=== PATIENT | male | born 1990 | race Caucasian/White ===

== ENCOUNTER 2019-12-16 19:34 | Emergency (ER) | payer BC ==
[2019-12-16 19:42] VITALS: TEMP 98.2
[2019-12-16] MEDS ORDERED: methylPREDNISolone SOD SUCCI 125 MG/2 ML VIAL IV STA (19:55)
[2019-12-16] MEDS ORDERED: SODIUM CHLORIDE 0.9% 500 ML 500 ML IV STA (19:55)
[2019-12-16] MEDS ORDERED: diphenhydrAMINE 50 MG/ML 1 ML VIAL IVP STA (19:55)
--- NOTE | 2019-12-16 20:23 | ED ---
Allergic Reaction HPI - General Chief complaint: Allergic Reaction Stated complaint: Poss allergic reaction Time Seen by Provider: 12/16/19 19:46 Source: patient Mode of arrival: ambulatory Limitations: no limitations - History of Present Illness Initial Comments: Patient is a 29-year-old male presenting to the emergency Department with complaints of a possible ALLERGIC reaction. Patient states 3 weeks ago he had a poison becca on his bilateral lower arms as well as on his abdomen area. Patient states over that next week his symptoms did seem to clear up. Patient states about 3 days ago he noticed hives returning on his abdomen and also extending onto his extremities. He did go to urgent care and received a steroid injection as well as started on prednisone. Patient states his symptoms seemed to have cleared up but then today his hives has returned. He has been taking his prednisone as prescribed. He denies any shortness of breath, chest pain, throat swelling, nausea or vomiting. He states he has been taking Benadryl 50 mg every 4-6 hours as well. His last dose was about 4 hours prior to arrival. He states he did not change anything else at home including soaps, lotions, detergents. He does not have any known ALLERGIES. He has no further complaints. Upon arrival to the ER his vitals are stable. - Related Data Previous Rx's Medication Instructions Recorded predniSONE 20 mg PO BID 3 Days #12 tab 12/16/19 Allergies Allergy/AdvReac Type Severity Reaction Status Date / Time No Known Allergies Allergy Verified 12/16/19 19:42 Review of Systems ROS Statement: Those systems with pertinent positive or pertinent negative responses have been documented in the HPI. ROS Other: All systems not noted in ROS Statement are negative. Past Medical History Past Medical History: No Reported History History of Any Multi-Drug Resistant Organisms: None Reported Past Surgical History: No Surgical Hx Reported Past Psychological History: No Psychological Hx Reported Smoking Status: Former smoker Past Alcohol Use History: None Reported Past Drug Use History: None Reported General Exam - General Exam Comments Initial Comments: GENERAL: Patient is well-developed and well-nourished. Patient is nontoxic and in no acute distress. HEAD: Atraumatic, normocephalic. EYES: Pupils equal round and reactive to light, extraocular movements intact, sclera anicteric, conjunctiva are normal. Eyelids were unremarkable. ENT: TMs normal, nares patent, oropharynx clear without exudates. Moist mucous membranes. NECK: Normal range of motion, supple without lymphadenopathy or JVD. LUNGS: Unlabored respirations. Breath sounds clear to auscultation bilaterally and equal. No wheezes rales or rhonchi. HEART: Regular rate and rhythm without murmurs, rubs or gallops. ABDOMEN: Soft, nontender, normoactive bowel sounds. No guarding, no rebound. No masses appreciated. : Deferred MUSCULOSKELETAL: Normal extremities with adequate strength and normal range of motion, no pitting or edema. No clubbing or cyanosis. NEUROLOGICAL: Patient is alert and oriented x 3. Motor and sensory are also intact. Cranial nerves II through XII grossly intact. Symmetrical smile. Normal speech, normal gait. PSYCH: Normal mood, normal affect. SKIN: Warm, Dry, normal turgor. Patient has erythematous raised patches consistent with hives along his abdomen, trunk, upper and lower extremities. Limitations: no limitations Course Vital Signs 12/16/19 12/16/19 19:41 20:46 Temperature 98.2 F Pulse Rate 67 Respiratory 16 18 Rate Blood Pressure 110/69 O2 Sat by Pulse 98 Oximetry Medical Decision Making - Medical Decision Making Patient is a 29-year-old male here with a possible ALLERGIC reaction presenting with hives on his trunk and extremities. His vitals are stable, he is in no acute distress, and rest of exam is unremarkable. He is already on prednisone 2 days. I did give patient some fluids as well as IV steroids and Benadryl. He reports improvement in his symptoms and his rash has dissipated. I will continue patient on prednisone. He may continue with Benadryl as well every 4-6 hours if needed. He can follow up with his PCP. He is in agreement with this plan of care. Return parameters were discussed with the patient he verbalizes understanding. Case discussed with Dr. Caro. Disposition Clinical Impression: Allergic reaction Disposition: HOME SELF-CARE Condition: Stable Instructions (If sedation given, give patient instructions): General Allergic Reaction (ED) Additional Instructions: Please return to the Emergency Department if symptoms worsen or any other concerns. He was given IV Benadryl and steroids today. Continue with oral steroids tomorrow as prescribed. May continue with Benadryl every 4-6 hours as needed for itching. Follow-up with PCP. Prescriptions: predniSONE 20 mg PO BID 3 Days #12 tab Is patient prescribed a controlled substance at d/c from ED?: No Referrals: None,Stated [Primary Care Provider] - 1-2 days
[2019-12-16 20:51] VITALS: RESP 18
[2019-12-16 21:21] VITALS: BP 112/70; PULSE 72
== END 2019-12-16 21:21 | disposition home or self-care (01) ==
LOC: EC 19:34
DX: T78.40XA Allergy, unspecified, initial encounter (principal); Z87.891 Personal history of nicotine dependence
CPT/HCPCS: 99283; 96374; 96375; 96361; J1200; J2930